=== PATIENT | female | born 1955 | race Caucasian/White ===

== ENCOUNTER 2016-06-24 11:45 | Emergency (ER) | payer OTHER ==
[2016-06-24] MEDS ORDERED: KETOROLAC TROMETHAMINE 60 MG/2 ML VIAL IM ONE ×2 (12:33→12:37)
--- NOTE | 2016-06-24 12:47 | ERNOTE ---
Lower Extremity HPI - Narrative Date of Service: 06/24/16 - General Lower Extremities Pain: leg: left, other: right - Lumbar sacral Time Seen by Provider: 06/24/16 12:23 Source: patient Exam Limitations: no limitations - Immun/Allergies/Home Medications Immunizations: IMMUNIZATION HX Immunizations Up to Date No History of Influenza Vaccine No Hx Pneumococcal Vaccination No Allergies/Adverse Reactions: Allergies Allergy/AdvReac Type Severity Reaction Status Date / Time Penicillins Allergy Intermediate Hives Verified 06/24/16 11:59 Home Medications: HOME MEDICATIONS Cyclobenzaprine HCl [Flexeril] 10 mg PO TID PRN #30 tab 06/24/16 [Last Taken Unknown] - History of Present Illness Narrative: Pt. comes in with c/o lower back that radiates down her L buttock that wraps around her knee to the front and down tho her foot. Pt. denies falling but states that she was twisting and felt her back give out. Pt. states that she has been seeing her chiropractor for the pain without alleviation of pain. Pt. states that she does not just want to take pills but wants the problem fixed. Pt. denies any numbness, tingling, or loss of bowel/ bladder function. Review of Systems - Review of Systems Constitutional: Present: no symptoms reported. Absent: recent illness, fever, chills, weakness, fatigue, malaise EYE: Present: no symptoms reported ENT: Present: no symptoms reported Respiratory: Present: no symptoms reported. Absent: shortness of breath, cough , wheezing Cardiology: Present: no symptoms reported. Absent: chest pain, palpitations, edema Gastrointestinal/Abdominal: Present: no symptoms reported Genitourinary: Present: no symptoms reported Musculoskeletal: Present: back pain - lower, muscle pain - LLE, muscle stiffness - low back, joint pain - L post hip Skin: Present: no symptoms reported Neurological: Present: no symptoms reported. Absent: headache, dizziness/light- headedness, numbness, tingling All Other Systems: All systems neg except as marked - Patient's Past Medical History Patient History - Medical: Rheumatoid Arthritis Patient History - Cardiac/Respiratory: No pertinent hx Patient History - Cancer: No Hx of Cancer Patient History - Surgical Procedures: Cholecystectomy Patient History - Other: None - Social History Living Situations: home Abuse History: No History of abuse Psych History: No pertinent hx Smoking Status: Current every day smoker Have you smoked in the past 12 months: Yes Alcohol Use: none Drug Use: none - Immunizations Immunizations Up to Date: No Hx Pneumococcal Vaccination: No History of Influenza Vaccine: No Physical Exam - Physical Exam General Appearance: Present: wd/wn, alert, no apparent distress Eye Exam: Normal inspection: bilateral, PERRL: bilateral, EOMI: bilateral Neck: Present: normal inspection, nontender. Absent: lymphadenopathy (R), lymphadenopathy (L), tender lateral, tender posterior midline Respiratory: Present: no respiratory distress, normal breath sounds, no accessory muscle use, chest nontender, lungs clear Cardiovascular/Chest: Present: regular rate, rhythm, no murmur, normal peripheral pulses Gastrointestinal/Abdominal: Present: normal bowel sounds, nontender, nondistended, soft, no organomegaly Back Exam: Present: normal range of motion, vertebral tenderness - L5 S1, muscle spasm - L gluteus Extremity Exam: Present: normal inspection, non-tender, no edema, normal range of motion Neurological Exam: Present: alert, oriented, normal mood/affect, no motor/ sensory deficits. Absent: motor weakness Skin Exam: Present: normal color, warm/dry. Absent: pallor, skin rash ED Progress - Vital Signs Patient's Vital Signs:: I have reviewed the patient's vital signs. Vital Signs: Vital Signs 06/24/16 11:52 Temperature 36.0 C L Pulse Rate 91 Respiratory 16 Rate Blood Pressure 189/131 O2 Sat by Pulse 99 Oximetry - X-Ray X-Ray #1 X-Ray: lumbosacral Interpretation: Reviewed by me X-ray Comments: multilevel degenerative spurring. - Progress/Reassessment Chief Complaint: Lower Extremity Pain/ Injury Departure Clinical Impression: Degenerative disk disease Qualifiers: Spinal region: lumbar Qualified Code(s): M51.36 - Other intervertebral disc degeneration, lumbar region Sciatica Qualifiers: Laterality: left Qualified Code(s): M54.32 - Sciatica, left side - Departure Disposition: Home self-care Condition: Good Instructions: Sciatica, [id number] Additional Instructions: Please follow up with primary provider as you most likely need referral to fundraising specialist for [facility] recommendations. Continue naproxen daily and start flexeril up to three times a day as needed and can continue seeing chiropractor. Prescriptions: Cyclobenzaprine HCl [Flexeril] 10 mg PO TID PRN #30 tab PRN Reason: MUSCLE SPASMS
--- OUTSIDE RECORDS SUMMARY | 2016-06-24 13:07 | XMS REPORT | Continuity of Care Document ---
:1955 Author Organization [facility] ([facility]) Address [address] [place] [address] Phone [phone] Care Team Providers Name Role Phone Unavailable Primary Care Provider Unavailable Source Comments This disclosure is being made pursuant to the Care Everywhere program, applicable federal and state laws, and may not contain all informaitonavailable regarding this patient.[facility] ([facility]) Active Allergies and Adverse Reactions Not on File Current Medications Not on file Active Problems Not on file Social History Tobacco Use Types Packs/Day Years Used Date Never Assessed Plan of Care Health Maintenance Due Date Last Done Comments HCV Screening 1955 Hepatitis B Vaccine (1 of 3 - Primary Series) 1955 Tdap Vaccine 1968 Lipid Disorder Screening 10/02/1975 MMR Vaccine 10/02/1975 Td Vaccine 10/02/1975 Cervical Cancer Screening 10/02/1987 Mammogram 1997 Colonoscopy 2007 Influenza Vaccine: Seasonal (#1) 11/30/2015 Results from Last 3 Months Not on file
[2016-06-24 14:24] VITALS: BP 179/98
== END 2016-06-24 13:45 | disposition home or self-care (01) ==
LOC: ER 11:45
DX: M51.36 Other intervertebral disc degeneration, lumbar region (principal); M54.32 Sciatica, left side; Z72.0 Tobacco use

== ENCOUNTER 2016-06-25 08:46 | Emergency (ER) | payer OTHER ==
--- NOTE | 2016-06-25 09:16 | ERNOTE ---
Back Pain ER HPI Date of Service: 06/25/16 Presenting Symptoms: hx chronic back pain Time Seen by Provider: 06/25/16 09:14 Source: patient Immunizations: IMMUNIZATION HX Immunizations Up to Date No History of Influenza Vaccine No Hx Pneumococcal Vaccination No Allergies/Adverse Reactions: Allergies Penicillins Allergy (Intermediate, Verified 06/25/16 09:15) Hives Home Medications: HOME MEDICATIONS Cyclobenzaprine HCl [Flexeril] 10 mg PO TID PRN #30 tab 06/24/16 [Last Taken Unknown] Diazepam [Valium] 5 mg PO BID PRN 7 Days 06/25/16 [Last Taken Unknown] HYDROcodone/ACETAMINOPHEN [[place] 5-325] 1 each PO Q4H #20 tablet 06/25/16 [Last Taken Unknown] Naproxen [Naprosyn] 500 mg PO BID #60 tablet 06/25/16 [Last Taken Unknown] Narrative: Pt sat on the edge of her bed this morning and had a sudden sharp pain in the right SI joint and down the side of the right thigh Timing: Reports: constant Quality/Severity: Reports: severe Location of pain: Reports: lower back Activities at Onset: Reports: none Recent Injury?: Reports: yes Modifying Factors - (Improves): Reports: other - ice and rest Modifying Factors - (Worsens): Reports: nothing Associated Symptoms: Reports: none Review of Systems - Review of Systems Constitutional: Present: See HPI EYE: Present: no symptoms reported ENT: Present: no symptoms reported Respiratory: Present: no symptoms reported Cardiology: Present: no symptoms reported Gastrointestinal/Abdominal: Present: no symptoms reported Genitourinary: Present: no symptoms reported Musculoskeletal: Present: See HPI, back pain Skin: Present: no symptoms reported Neurological: Present: no symptoms reported Endocrine: Present: no symptoms reported Hematologic/Lymphatic: Present: no symptoms reported Psych: Present: no symptoms reported - Patient's Past Medical History Patient History - Medical: Rheumatoid Arthritis Patient History - Cardiac/Respiratory: No pertinent hx Patient History - Cancer: No Hx of Cancer Patient History - Surgical Procedures: Cholecystectomy Patient History - Other: None - Social History Living Situations: home Abuse History: No History of abuse Psych History: No pertinent hx Smoking Status: Current every day smoker Have you smoked in the past 12 months: Yes Alcohol Use: none Drug Use: none - Immunizations Immunizations Up to Date: No Hx Pneumococcal Vaccination: No History of Influenza Vaccine: No Physical Exam - Physical Exam General Appearance: Present: wd/wn, alert, moderate distress Eye Exam: Normal inspection: bilateral, PERRL: bilateral Ears, Nose, Throat: Present: normal ENT inspection, hearing grossly normal, normal pharynx Neck: Present: normal inspection, nontender Respiratory: Present: no respiratory distress, normal breath sounds, no accessory muscle use, chest nontender, lungs clear Cardiovascular/Chest: Present: regular rate, rhythm, no murmur, normal peripheral pulses Gastrointestinal/Abdominal: Present: normal bowel sounds, nontender, nondistended, soft, no organomegaly Rectal Exam: Present: deferred Back Exam: Present: normal inspection, normal range of motion Extremity Exam: Present: no edema, other - palpable tenderness at the right SI joint and down the right IT Band Neurological Exam: Present: alert, oriented, normal mood/affect Skin Exam: Present: normal color, warm/dry Lymphatic Exam: Present: no adenopathy ED Progress - Vital Signs Patient's Vital Signs:: I have reviewed the patient's vital signs. Vital Signs: Vital Signs 06/25/16 09:12 Temperature 35.9 C L Pulse Rate 107 H Respiratory 20 Rate Blood Pressure 159/112 O2 Sat by Pulse 98 Oximetry - Progress/Reassessment Chief Complaint: Back Pain Progress:: Improved - Transfer of Care Expected Disposition: Discharge Departure Clinical Impression: Back pain Qualifiers: Back pain location: low back pain Chronicity: acute Back pain laterality: right Sciatica presence: without sciatica Qualified Code(s): M54.5 - Low back pain IT band syndrome Qualifiers: Laterality: right Qualified Code(s): M76.31 - Iliotibial band syndrome, right leg - Departure Disposition: Home self-care Condition: Good Prescriptions: Diazepam [Valium] 5 mg PO BID PRN 7 Days PRN Reason: Muscle Spasm HYDROcodone/ACETAMINOPHEN [[place] 5-325] 1 each PO Q4H #20 tablet Naproxen [Naprosyn] 500 mg PO BID #60 tablet
[2016-06-25] MEDS ORDERED: HYDROcodone/ACETAMINOPHEN 1 EACH TABLET PO ONE (09:24)
[2016-06-25] MEDS ORDERED: KETOROLAC TROMETHAMINE 30 MG/ML VIAL IV ONE (09:24)
[2016-06-25] MEDS ORDERED: METHYLPREDNISOLONE SOD SUCC/PF 40 MG/ML VIAL IV ONE (09:24)
[2016-06-25] MEDS ORDERED: DIAZEPAM 5 MG/ML SYRG IV ONE (09:25)
--- OUTSIDE RECORDS SUMMARY | 2016-06-25 09:31 | XMS REPORT | Continuity of Care Document ---
:1955 Author Organization [facility] ([facility]) Address [address] [place] [address] Phone [phone] Care Team Providers Name Role Phone Unavailable Primary Care Provider Unavailable Source Comments This disclosure is being made pursuant to the Care Everywhere program, applicable federal and state laws, and may not contain all informaitonavailable regarding this patient.[facility] ([facility]) Active Allergies and Adverse Reactions Not on [...]
[2016-06-25] MEDS ORDERED: DIAZEPAM 5 MG/ML SYRG ONE (09:50)
[2016-06-25] MEDS ORDERED: METHYLPREDNISOLONE SOD SUCC/PF 40 MG/ML VIAL ONE (09:50)
[2016-06-25] MEDS ORDERED: HYDROcodone/ACETAMINOPHEN 1 EACH TABLET ONE (09:50)
[2016-06-25] MEDS ORDERED: KETOROLAC TROMETHAMINE 30 MG/ML VIAL ONE (09:50)
[2016-06-25 11:17] VITALS: BP 184/125
== END 2016-06-25 11:16 | disposition home or self-care (01) ==
LOC: ER 08:46
DX: M54.5 Low back pain (principal); M76.31 Iliotibial band syndrome, right leg; Z72.0 Tobacco use